=== PATIENT | female | born 1975 | race Caucasian/White ===

== ENCOUNTER 2021-10-30 08:29 | Day surgery (SDC) | payer OTHER, SELFPAY ==
[2021-10-30] MEDS: Lactated Ringers 1,000 ML 15 ML IV (09:00)
[2021-10-30 09:16] VITALS: BP 106/69; PULSE 69; RESP 16; TEMP 36.6; O2SAT 100; BMI 20.9
[2021-10-30 09:33] LABS: Internal QC Validated? YES +Cl - CLEAR BKGD; Pregnancy, Urine Negative Negative
--- NOTE | 2021-10-30 10:05 | HP.PCM_ITS ---
History and Physical Date of Admission: 10/30/21 46 F who presents to the office today for evaluation of chest pain and esophageal dysphagia. SHe was referred by PCP for evaluation. During routine PCP evaluation it was noted her biochemical workup was abnormal. she had pain in her chest and back that spontaneously resolved. Presented to [facility] ED for possible clotting due to elevated DDimer. CTA performed and PCP note reports this as showing esophageal thickening suspicious for esophagitis. She began having difficulty walking upright due to pain in her chest. HIDA scan, CT scans, ultrasounds performed. Pain in her chest with discomfort in her upper esophagus, this doesn?t feel like heartburn. Reports that when eating food she has problems with is passing through her esophagus slowly with feelings of food getting stuck. She had a glass of wine recently which caused her to have chest pain and sores in her mout h. Has changed her diet to reduce spicy food, she has reduced her alcohol consumption to rarely. Sees vascular specialist due to varicose veins, she will be seeing him for further workup regarding the DDimer. Hematology has not been established/referred to. Does not know her family history as she was not raised by her parents. ROS Const Constitutional: No anorexia, fatigue, fever(s), weight change or sleep problems Eyes Eyes: No change in vision ENT ENT: No abnormal hearing, difficulty swallowing, mouth lesions, tongue swelling or throat swelling Resp Respiratory: No cough or shortness of breath Cardio Cardiology: No chest pain at rest, chest pain with exertion, shortness of breath or dyspnea on exertion Gastro GI: No difficulty swallowing Genitourinary-Female: No difficulty urinating or burning urination Musc Musculoskeletal: No joint pain, joint swelling, muscle weakness or decreased muscle mass Skin Skin: No hair loss in leg, yellowing of the eye, itchy eyes, rash, skin ulcer or skin swelling Neuro Neurology: No abnormal hearing, abnormal movements, confusion, unsteady gait/balance or memory loss Psych Psychiatric: No anxiety, No confusion and No memory loss Endo Endocrine: No fatigue or weight change Aller/Imm Allergy/Immunologic: No itchy eyes, throat swelling or tongue swelling Shahid/Lymp Hematologic/Lymphatic: No easy bleeding, easy bruising or enlarged lymph nodes Exam Const General: cooperative and comfortable Nutritional Appearance: average body habitus and well nourished HENMT Head: normal to inspection Ears: hearing grossly normal bilaterally Nose: external nose normal Face and sinus: normal facial exam Mouth: oral mucosae normal Throat: posterior oropharynx normal Eyes General: appearance normal, both eyes and all related structures Neck Neck: normal visual inspection Chest Chest palpation & inspection: normal inspection of the chest and normal palpation of entire chest wall Resp Effort & Inspection: normal respiratory effort Auscultation: Bilateral: Clear to Auscultation Cardio Palpation: normal PMI Rate: regular rate Rhythm: regular rhythm GI Inspection: normal to inspection Auscultation: normal bowel sounds Percussion: normal to percussion Palpation: no hepatosplenomegaly Skin General: no rashes or lesions noted Neuro General: patient alert Extrem General: normal to inspection Psych Affect: normal affect Assessment and Plan Assessment and Plan (1) Chest pain: Status: Acute Orders: Orders: Celiac Disease Profile 10/24/21 H. PYLORI STOOL AG 10/24/21 Immunoglobulin A 10/24/21 Immunoglobulin E 10/24/21 Immunoglobulin G 10/24/21 Immunoglobulin M 10/24/21 Allergen, Rast Food Profile 10/24/21 Allergen, Food Profile 10/24/21 Miscellaneous Lab Procedure 10/24/21 Plan - Dr. Ferreira Friend, DO: She has evidence of thickening in her esophagus. The differential diagnosis for that would be erosive esophagitis, eosinophilic esophagitis. Less likely infectious esophagitis (esophagitis. She should undergo an upper endoscopy evaluation upper GI tract. She should also undergo biochemical testing. She has had several family. We will check her H. pylori in her stool and also perform work-up for celiac disease due to weight loss. She will also undergo further evaluation along with testing for celiac disease. Plan Details Other Medications: New: omeprazole Take one capsule daily 40 mg PO DAILY 30 caps 0RF I have re-examined the patient. There are no clinical changes since date of exam.
--- NOTE | 2021-10-30 10:30 | EGD_PTH ---
PATIENT: GUILLERMO SERRATO LOC: EN U#:[id number] AGE/SX: 46/F ROOM: RE10/30/[address]: Dr. Jhon Alvarez DO : 1975 BED: DIS: 10/30/2021 SPEC #: [id number] RECD: 10/30/21 14:30 STATUS: AYLA CALVIN #: [id number] MELIZA: 10/30/21 10:[address]: Jhon Alvarez DEPT: SURGICAL PATHOLOGY RECD BY: Kortney Sheth ENTERED: 10/31/21 09:35 SP TYPE: EGD BIOPSY MOY DR: Dr. Mohan Elaine MD Tissues: A - Gastric mucous membrane B - Gastric mucous membrane C - Gastric mucous membrane D - Esophagus, NOS Procedures: Surgery Specimen Level IV HEADER OPERATION[place] [place] DIAGNOSIS: Chest pain TISSUE SUBMITTED: A ? Gastric body biopsy, B ? Gastric antrum biopsy, C ? Gastric cardia biopsy, D ? Random esophagus biopsy MICROSCOPIC DIAGNOSIS A. Gastric body, biopsy: Chronic gastritis with focal acute gastritis. B. Gastric antrum, biopsy: Chronic gastritis. C. Gastric cardia, biopsy: Chronic gastritis. D. Esophagus, random biopsy: No pathologic change. AM:patrick 11/03/2021 MICROSCOPIC DESCRIPTION Slides are reviewed. GROSS DESCRIPTION A - Received in fixative is one container labeled with the patient's name and designated gastric body biopsy. The specimen consists of multiple irregular fragments of light cortez soft tissue that in aggregate measure 1.2 x 0.5 x 0.1 cm. The specimen is totally submitted in one cassette. B - Received in fixative is one container labeled with the patient's name and designated gastric antrum biopsy. The specimen consists of one irregular fragment of light cortez soft tissue that measures 0.3 x 0.3 x 0.1 cm. The specimen is totally submitted in one cassette. C - Received in fixative is one container labeled with the patient's name and designated gastric cardia biopsy. The specimen consists of two irregular fragments of light cortez soft tissue that in aggregate measure 0.6 x 0.2 x 0.1 cm. The specimen is totally submitted in one cassette. D - Received in fixative is one container labeled with the patient's name and designated random esophagus biopsy. The specimen consists of multiple irregular fragments of light cortez soft tissue that in aggregate measure 1.4 x 0.3 x 0.1 cm. The specimen is totally submitted in one cassette. / SJ:patrick 10/31/2021 TC:3 CPT: 28358 x4
[2021-10-30 11:33] VITALS: BP 106/69; BP 96/61; PULSE 74; RESP 16; TEMP 36.8; O2SAT 97
--- NOTE | 2021-10-30 11:34 | OP.EGD_ITS ---
Patient Name: Paty Moscoso Procedure Date: 10/30/2021 11:08 AM Date of : 1975 Age: 46 Procedure: Upper GI endoscopy Indications: Dysphagia Providers: Jhon Alvarez DO Medicines: See the Anesthesia note for documentation of the administered medications Patient Profile: This is a 46 year old female. Refer to note in patient chart for documentation of history and physical. Patient has symptoms of acute chest pain and chronic dysphagia. Complications: No immediate complications. Procedure: Pre-Anesthesia Assessment: - Prior to the procedure, a History and Physical was performed, and patient medications and allergies were reviewed. The patient is competent. The risks and benefits of the procedure and the sedation options and risks were discussed with the patient. All questions were answered and informed consent was obtained. Patient identification and proposed procedure were verified by the physician in the pre-procedure area. Mental Status Examination: alert and oriented. Airway Examination: normal oropharyngeal airway and neck mobility. Respiratory Examination: clear to auscultation. CV Examination: normal. Prophylactic Antibiotics: The patient does not require prophylactic antibiotics. Prior Anticoagulants: The patient has taken no previous anticoagulant or antiplatelet agents. ASA Grade Assessment: II - A patient with mild systemic disease. After reviewing the risks and benefits, the patient was deemed in satisfactory condition to undergo the procedure. The anesthesia plan was to use moderate sedation / analgesia (conscious sedation). Immediately prior to administration of medications, the patient was re-assessed for adequacy to receive sedatives. The heart rate, respiratory rate, oxygen saturations, blood pressure, adequacy of pulmonary ventilation, and response to care were monitored throughout the procedure. The physical status of the patient was re-assessed after the procedure. After obtaining informed consent, the endoscope was passed under direct vision. Throughout the procedure, the patient's blood pressure, pulse, and oxygen saturations were monitored continuously. The Endoscope was introduced through the mouth, and advanced to the second part of duodenum. The upper GI endoscopy was accomplished without difficulty. The patient tolerated the procedure well. Moderate Sedation: Moderate (conscious) sedation was administered by the endoscopy nurse and supervised by the endoscopist. The patient's oxygen saturation, heart rate, blood pressure and response to care were monitored. Total physician intraservice time was 15 minutes. Scope In: 11:19:41 AM Scope Out: 11:28:30 AM Total Procedure Duration Time 0 hours 8 minutes 49 seconds Findings: Mucosal changes including feline appearance, longitudinal furrows and small-caliber esophagus were found in the entire esophagus. Esophageal findings were graded using the Eosinophilic Esophagitis Endoscopic Reference Score (EoE-EREFS) as: Edema Grade 1 Present (decreased clarity or absence of vascular markings), Rings Grade 1 Mild (subtle circumferential ridges seen on esophageal distension), Exudates Grade 0 None (no white lesions seen), Furrows Grade 1 Present (vertical lines with or without visible depth) and Stricture none (no stricture found). Biopsies were taken with a cold forceps for histology. Verification of patient identification for the specimen was done. Estimated blood loss was minimal. Diffuse granular mucosa was found in the entire examined stomach. Biopsies were taken with a cold forceps for histology. Verification of patient identification for the specimen was done. Estimated blood loss was minimal. There was a gastric ulcer seen in the gastric body and biopsies were taken. The second portion of the duodenum was normal. Impression: - Esophageal mucosal changes consistent with eosinophilic esophagitis. Biopsied. - Granular gastric mucosa. Biopsied. - Normal second portion of the duodenum. Recommendation: - Discharge patient to home. - Resume previous diet. - Continue present medications. - Await pathology results. - Repeat upper endoscopy in 1 year for surveillance based on pathology results. - Return to GI office. Procedure Code(s): --- Professional --- 82318, Esophagogastroduodenoscopy, flexible, transoral; with biopsy, single or multiple 10644, 59, Moderate sedation services provided by the same physician or other qualified health care management coordinator performing the diagnostic or therapeutic service that the sedation supports, requiring the presence of an independent trained observer to assist in the monitoring of the patient's level of consciousness and physiological status; initial 15 minutes of intraservice time, patient age 5 years or older CPT copyright 2017 [employer]. All rights reserved. The codes documented in this report are preliminary and upon materials scheduler review may be revised to meet current compliance requirements. Jhon Alvarez DO 10/30/2021 11:33:45 AM This report has been signed electronically. Number of Addenda: 1 Note Initiated On: 10/30/2021 11:08 AM Addendum Number: 1 Addendum Date: 06/01/2022 6:43:37 AM MAC was used for sedation during this procedure. Jhon Alvarez DO 06/01/2022 6:43:41 AM This report has been signed electronically.
--- NOTE | 2021-10-30 11:34 | OP.CCLET_ITS ---
06/01/2022 Mohan Elaine Re : Upper GI endoscopy procedure for Paty De Diosr Chele This procedure was performed on October. My impressions and recommendations are as follows: Impressions : - Esophageal mucosal changes consistent with eosinophilic esophagitis. Biopsied. - Granular gastric mucosa. Biopsied. - Normal second portion of the duodenum. Recommendations : - Discharge patient to home. - Resume previous diet. - Continue present medications. - Await pathology results. - Repeat upper endoscopy in 1 year for surveillance based on pathology results. - Return to GI office. My findings are described in the full procedure note, which is enclosed. If I can be of further assistance, please feel free to contact me at . Sincerely, Jhon Alvarez, 10/30/2021 11:33:45 AM This report has been signed electronically.
[2021-10-30 11:38] VITALS: BP 102/65; BP 106/69; PULSE 76; RESP 16; O2SAT 100
[2021-10-30 11:43] VITALS: BP 106/69; BP 96/63; PULSE 73; RESP 16; O2SAT 100
[2021-10-30 11:48] VITALS: BP 100/68; BP 106/69; PULSE 73; RESP 16; TEMP 36.8; O2SAT 100
[2021-10-30 12:06] VITALS: BP 106/69
[2021-11-04 11:08] LABS: Endomysial Antibody IgA Negative (Negative); Immunoglobulin A 89 mg/dL (87-352); Immunoglobulin G 834 mg/dL (586-1602); Immunoglobulin M 166 mg/dL (26-217)
[2021-11-04 14:09] LABS: Anti-Centromere B Ab <0.2 AI (0.0-0.9); Anti-Chromatin <0.2 AI (0.0-0.9); Anti-Jo <0.2 AI (0.0-0.9); Anti-Scleroderma-70 AB <0.2 AI (0.0-0.9); Beef <0.10 kU/L (Class 0); Clam <0.10 kU/L (Class 0); Codfish <0.10 kU/L (Class 0); Corn <0.10 kU/L (Class 0); Egg, White <0.10 kU/L (Class 0); Egg, Whole <0.10 kU/L (Class 0); Milk (Cow) <0.10 kU/L (Class 0); Peanut <0.10 kU/L (Class 0); Pork <0.10 kU/L (Class 0); RNP Ab <0.2 AI (0.0-0.9); SCALLOP <0.10 kU/L (Class 0); SESAME SEED <0.10 kU/L (Class 0); SJOGREN'S Anti-SS-A test < 0.2 AI (0.0-0.9); SJOGREN'S Anti-SS-B test < 0.2 AI (0.0-0.9); Shrimp <0.10 kU/L (Class 0); Smith Ab <0.2 AI (0.0-0.9); Soybean <0.10 kU/L (Class 0); Walnut, (Food) <0.10 kU/L (Class 0); Wheat <0.10 kU/L (Class 0)
[2021-11-04 14:22] LABS: Immunoglobulin E 38 IU/mL (6-495); t-Transglutaminase IgA <2 U/mL (0-3)
[2021-11-04 17:26] LABS: Anti-dsDNA Ab 2 IU/mL (0-9); Chocolate <0.10 kU/L (Class 0)
== END 2021-10-30 23:59 | disposition home or self-care (01) ==
LOC: EN 08:36 → AC 08:46
PROVIDERS: Anesthesiology; PCP Family Medicine; Referring Provider Family Medicine; Visit Provider Internal Medicine Gastroenterology
PROC: 0DJ08ZZ Inspection of Upper Intestinal Tract, Via Natural or Artificial Opening Endoscopic (ICD-10-PCS; CPT 43235; principal; 2021-10-30 10:25)
DX: K25.9 Gastric ulcer, unspecified as acute or chronic, without hemorrhage or perforation (principal); K29.00 Acute gastritis without bleeding; K29.50 Unspecified chronic gastritis without bleeding; R13.10 Dysphagia, unspecified
CPT/HCPCS: 43239; 36415; 81025; 82784; 82785; 83516; 86003; 86005; 86225; 86235; 86255; 87426; 88305; J7120; J2405

== ENCOUNTER 2021-11-21 14:03 | Outpatient (CLI) | payer OTHER, SELFPAY ==
[2021-11-25 13:23] LABS: H. PYLORI STOOL AG Positive (Negative)
== END 2021-11-21 23:59 | disposition home or self-care (01) ==
LOC: LAB 14:04
PROVIDERS: PCP Family Medicine; Referring Provider Internal Medicine Gastroenterology; Visit Provider Internal Medicine Gastroenterology
DX: R07.9 Chest pain, unspecified (principal)

== ENCOUNTER → 2022-01-09 | Outpatient (CLI) | payer OTHER, SELFPAY ==
[2022-01-13 10:41] LABS: H. PYLORI STOOL AG Negative (Negative)
== END | disposition home or self-care (01) ==
LOC: LAB 16:23
PROVIDERS: PCP Family Medicine; Referring Provider Nurse Practitioner Adult Health; Visit Provider Nurse Practitioner Adult Health
DX: A04.8 Other specified bacterial intestinal infections (principal)

== ENCOUNTER 2022-05-20 06:25 | Day surgery (SDC) | payer OTHER, SELFPAY ==
--- NOTE | 2022-05-20 | EGD_PTH ---
PATIENT: GUILLERMO SERRATO LOC: EN U#:[id number] AGE/SX: 46/F ROOM: RE05/20/[address]: Dr. Jhon Alvarez DO : 1975 BED: DIS: 05/20/2022 SPEC #: [id number] RECD: 05/20/22 12:46 STATUS: AYLA CALVIN #: [id number] MELIZA: 05/20/22 00:[address]: Jhon Alvarez DEPT: SURGICAL PATHOLOGY RECD BY: Meño Elaine ENTERED: 05/20/22 12:47 SP TYPE: EGD BIOPSY OT DR: Dr. Mohan Elaine MD Tissues: A - Duodenum, NOS B - Gastric mucous membrane C - Gastric mucous membrane D - Esophageal mucous membrane E - Esophageal mucous membrane Procedures: Special Stain Group II Surgery Specimen Level IV Alcian Blue/PAS (control) HEADER OPERATION: Colonoscopy, [place] [place] PRE-OP DIAGNOSIS: Gastric ulcer, gastritis TISSUE SUBMITTED: A ? Duodenum biopsy, B ? Gastric antrum biopsy for H. pylori and pathology, C ? Gastric body biopsy, D ? Distal esophagus biopsy, E ? Random esophagus biopsy MICROSCOPIC DIAGNOSIS A. Duodenum, biopsy: Fragments of duodenal mucosa, no pathologic diagnosis. B. Gastric antrum, biopsy: Moderate gastritis. See microscopic description and comment. C. Gastric body, biopsy: Mild gastritis. See microscopic description. D. Distal esophagus, biopsy: Fragments of gastroesophageal mucosa with focal intestinal metaplasia (goblet cell metaplasia) consistent with Harris?s esophagus. Chronic inflammation. Negative for dysplasia. See comment. E. Esophagus, random biopsy: Fragments of squamous epithelium, no pathologic diagnosis. SJ:rg 05/21/2022 COMMENT B. The results of immunohistochemistry for Helicobacter pylori will be reported separately ([id number]). D. Immunohistochemistry ([id number]) for P53 and Ki-67 will be performed and results will be reported separately. Alcian blue/PAS stain with matched control is used in the evaluation of the specimen. MICROSCOPIC DESCRIPTION Slides are reviewed. B. The specimen shows fragments of gastric mucosa with chronic inflammatory cell infiltrates in the lamina propria consisting of lymphocytes and plasma cells, consistent with moderate chronic gastritis. C. The specimen shows fragments of gastric mucosa with chronic inflammatory cell infiltrates in the lamina propria consisting of lymphocytes and plasma cells, consistent with mild chronic gastritis. GROSS DESCRIPTION A - Received in fixative is one container labeled with the patient's name and designated biopsy duodenum. The specimen consists of three irregular fragments of light cortez soft tissue that in aggregate measure 0.8 x 0.3 x 0.1 cm. The specimen is totally submitted in one cassette. B - Received in fixative is one container labeled with the patient's name and designated gastric antrum. The specimen consists of multiple irregular fragments of light cortez soft tissue that in aggregate measure 0.6 x 0.3 x 0.1 cm. The specimen is totally submitted in one cassette. C - Received in fixative is one container labeled with the patient's name and designated biopsy gastric body. The specimen consists of one irregular fragment of light cortez soft tissue that measures 0.4 x 0.4 x 0.1 cm. The specimen is totally submitted in one cassette. D - Received in fixative is one container labeled with the patient's name and designated distal esophagus biopsy. The specimen consists of multiple irregular fragments of light cortez soft tissue that in aggregate measure 0.7 x 0.5 x 0.1 cm. The specimen is totally submitted in one cassette. E - Received in fixative is one container labeled with the patient's name and designated random esophagus. The specimen consists of multiple irregular fragments of light cortez soft tissue that in aggregate measure 1.2 x 0.4 x 0.1 cm. The specimen is totally submitted in one cassette. / SJ:patrick 05/20/2022 TC:3 [facility]: [id number] x5, 11938 ADDENDUM ADDENDUM ADDENDUM ADDENDUM ADDENDUM ADDENDUM ADDENDUM ADDENDUM ADDENDUM ADDENDUM ADDENDUM ADDENDUM ADDENDUM ADDENDUM ADDENDUM ADDENDUM ADDENDUM ADDENDUM ADDENDUM ADDENDUM ADDENDUM ADDENDUM ADDENDUM 09/10/2022 09:40 ADDENDUM 09/10/2022 09:40 ADDENDUM 09/10/2022 09:40 ADDENDUM 09/10/2022 09:40 ADDENDUM 09/10/2022 09:40 This addendum is added to incorporate an outside pathology consultation report. The case was examined at [facility] (#[id number]) and the following diagnosis was rendered. A. Duodenum, biopsy: Small intestinal mucosa with no diagnostic alteration. No evidence of celiac disease. B. Gastric antrum, biopsy: Antral mucosa with chronic inactive gastritis. Negative for Helicobacter pylori. C. Gastric body, biopsy: Oxyntic mucosa with chronic inactive gastritis. Negative for Helicobacter pylori. D. Distal esophagus, biopsy: Intestinal metaplasia, arising in squamo-gastric junctional mucosa, negative for dysplasia. E. Random esophagus, biopsy: Squamous mucosa with no diagnostic alteration. No prominence of intraepithelial eosinophils. Please see complete above mentioned consultation report in EMR
--- NOTE | 2022-05-20 06:36 | PCM.HP.BLA ---
History and Physical Date of Admission: 05/20/22 GUILLERMO SERRATO, is a 46 F who presents to the office today for f/u positive H pylori.? We treated her H. pylori, the follow-up stool H. pylori test was negative. She does feel better however she still has to avoid spicy foods, onions, and sometimes wine.? Still occasionally gets epigastric pain and sore throat, but less severe and less often. She called for refill of sucralfate recently, may be some improvement with it. Last visit was 11/14/21, at that visit we discussed results of EGD and biopsy; plan was to treat gastritis with 1 month of sucralfate and increase omeprazole 40 mg twice daily for 2 weeks, then will decrease to once daily for probably 8 weeks.? There was a gastric ulcer seen in the gastric body.? Stool test after that visit revealed H. pylori. Lab tests were negative for celiac disease, food allergies.? MAIN comprehensive was negative. In August 2021 she had pain in her chest and back that spontaneously resolved.? CTA was done and showed esophageal thickening suspicious for esophagitis.? She then started having pain in her chest, it was not obviously heartburn or acid reflux to her.? She also had chronic sore throat.? She did have a flare of chest pain with wine and also had sores in her mouth.? Symptoms improved once she started omeprazole but they did not resolve. 10/30/2021 EGD Impression: ? - Esophageal mucosal changes consistent with ? eosinophilic esophagitis. Biopsied. ? - Granular gastric mucosa. Biopsied. ? - Normal second portion of the duodenum. There was a gastric ulcer seen in the gastric body and ?? ? biopsies were taken. Pathology Report: A.? Gastric body, biopsy:Chronic gastritis with focal acute gastritis. B.? Gastric antrum, biopsy:Chronic gastritis. C.? Gastric cardia, biopsy:Chronic gastritis. D.? Esophagus, random biopsy:No pathologic change ROS Const Constitutional: No fatigue ENT ENT: No difficulty swallowing Gastro GI: No abdominal pain, belching, bloating, change in bowel habits, change in stool character, coffee ground emesis, constipation, cramping, diarrhea, heartburn, difficulty swallowing, feeling full early, excessive flatus, incontinent of stools, Vomiting blood/hematemesis, Blood in stool, loose stools, Black,tarry stools, nausea/dyspepsia, pain with swallowing, vomiting or other Musc Musculoskeletal: No joint pain Skin Skin: Positive for itchy eyes and rash; No yellowing of the eye Psych Psychiatric: No anxiety and No depression Endo Endocrine: No fatigue Aller/Imm Allergy/Immunologic: Positive for itchy eyes Shahid/Lymp Hematologic/Lymphatic: No easy bleeding or easy bruising Exam Const General: cooperative, healthy appearing, comfortable, well developed and well groomed GI Inspection: normal to inspection Palpation: soft and nontender Quality Reporting Tobacco Screening ([facility] 138) Smoking Status: Never smoker Assessment and Plan Assessment and Plan (1) Gastric ulcer: ?Status:?Acute (2) Colonoscopy planned: ?Status:?Acute (3) Gastritis: ?Status:?Acute ?Plan - Audelia Campos NP, LAUNDRY PRESSER-C: 46-year-old female with recent gastritis, gastric ulcer.? Her epigastric pain has improved however she still has to avoid spicy foods.? She will continue on pantoprazole 40 mg every morning.? She plans to complete a month of sucralfate again.? Will schedule repeat EGD to eval for resolution of gastric ulcer, as well as screening colonoscopy, follow-up 2 weeks after endoscopies to discuss biopsy results. I have re-examined the patient. There are no clinical changes since date of exam.
[2022-05-20] MEDS: Lactated Ringers 1,000 ML 15 ML IV (06:47)
[2022-05-20 06:48] VITALS: BP 101/65; PULSE 88; RESP 18; TEMP 36.3; O2SAT 100; BMI 20.8
[2022-05-20 06:49] LABS: Internal QC Validated? YES +Cl - CLEAR BKGD; Pregnancy, Urine Negative Negative
--- NOTE | 2022-05-20 07:30 | IMM_PTH ---
PATIENT: GUILLERMO SERRATO LOC: EN U#:[id number] AGE/SX: 46/F ROOM: RE05/20/[address]: Dr. Jhon Alvarez DO : 1975 BED: DIS: 05/20/2022 SPEC #: [id number] RECD: 05/20/22 13:23 STATUS: AYLA REJaren #: [id number] MELIZA: 05/20/22 07:[address]: Jhon Alvarez DEPT: IMMUNOHISTOCHEMISTRY RECD BY: Sondra Quinones ENTERED: 05/20/22 13:24 SP TYPE: IMMUNO OTHR DR: Dr. Mohan Elaine MD Tissues: B - Stomach, NOS D - Esophageal mucous membrane Procedures: H Pylori (initial) P53 (initial) KI-67 (add) PHYSICIAN & INSTITUTION [place] [id number] SPECIMEN INFORMATION: Tissue Source: B ? Gastric antrum, D ? Distal esophagus Clinical Info: Gastric ulcer, gastritis Specimen Number: [id number] B & D CPT code: 16681 x2, 62448 METHODOLOGY: Deparaffinized sections of prefer/formalin-fixed tissue or PAP/DQ stained slides are incubated with monoclonal/polyclonal antibodies/oligonucleotide probes. Localization is made via biotin free immunoperoxidase method. Appropriate controls are performed and reacted as expected. Results on target cell population are indicated in the following table: RESULTS: ANTIBODY / CLONE RESULT Block B H Pylori (polyclonal) negative Block D P53 (DO-7) negative Ki-67 (30-9) positive, very low These tests were developed and their performance characteristics determined by [facility]. They may not have been cleared or approved by the U.S. Food and Drug Administration. The FDA has determined that such clearance or approval is not necessary. The above immunohistochemical/dualISH markers are ordered and reviewed by the Pathologist. INTERPRETATION: B. Gastric antrum, biopsy: Negative for Helicobacter pylori organisms. D. Distal esophagus, biopsy: Negative for dysplasia. SJ:patrick 05/22/2022
[2022-05-20 08:05] VITALS: BP 101/65; BP 95/84; PULSE 85; RESP 16; TEMP 36.6; O2SAT 100
--- NOTE | 2022-05-20 08:09 | OP.CCLET_ITS ---
05/20/2022 Mohan Elaine Re : Upper GI endoscopy procedure for Paty De Diosr Chele This procedure was performed on Friday, May 20, 2022. My impressions and recommendations are as follows: Impressions : - Glycogenic acanthosis of the esophagus. Biopsied. - Z-line irregular, 38 cm from the incisors. Biopsied. - Medium-sized hiatal hernia. - Erythematous mucosa in the gastric body, greater curvature and antrum. Biopsied. - Erythematous duodenopathy. Biopsied. Recommendations : - Discharge patient to home. - Resume previous diet. - Continue present medications. - Await pathology results. My findings are described in the full procedure note, which is enclosed. If I can be of further assistance, please feel free to contact me at . Sincerely, Jhon Alvarez, 05/20/2022 8:08:30 AM This report has been signed electronically.
--- NOTE | 2022-05-20 08:09 | OP.EGD_ITS ---
Patient Name: Paty Moscoso Procedure Date: 05/20/2022 7:26 AM Date of : 1975 Age: 46 Procedure: Upper GI endoscopy Indications: Epigastric abdominal pain, Functional Dyspepsia, Failure to respond to medical treatment, Helicobacter pylori Providers: Jhon Alvarez DO Medicines: Monitored Anesthesia Care Patient Profile: This is a 46 year old female. Refer to note in patient chart for documentation of history and physical. Patient has symptoms of chronic abdominal cramping, chronic abdominal distention, chronic epigastric abdominal pain and chronic dyspepsia. Complications: No immediate complications. Procedure: Pre-Anesthesia Assessment: - Prior to the procedure, a History and Physical was performed, and patient medications and allergies were reviewed. The patient is competent. The risks and benefits of the procedure and the sedation options and risks were discussed with the patient. All questions were answered and informed consent was obtained. Patient identification and proposed procedure were verified by the physician in the pre-procedure area. Mental Status Examination: alert and oriented. Airway Examination: normal oropharyngeal airway and neck mobility. Respiratory Examination: clear to auscultation. CV Examination: normal. Prophylactic Antibiotics: The patient does not require prophylactic antibiotics. Prior Anticoagulants: The patient has taken no previous anticoagulant or antiplatelet agents. ASA Grade Assessment: I - A normal, healthy patient. After reviewing the risks and benefits, the patient was deemed in satisfactory condition to undergo the procedure. The anesthesia plan was to use monitored anesthesia care (MAC). Immediately prior to administration of medications, the patient was re-assessed for adequacy to receive sedatives. The heart rate, respiratory rate, oxygen saturations, blood pressure, adequacy of pulmonary ventilation, and response to care were monitored throughout the procedure. The physical status of the patient was re-assessed after the procedure. After obtaining informed consent, the endoscope was passed under direct vision. Throughout the procedure, the patient's blood pressure, pulse, and oxygen saturations were monitored continuously. The colonoscope was introduced through the mouth, and advanced to the second part of duodenum. The upper GI endoscopy was accomplished without difficulty. The patient tolerated the procedure well. Scope In: 7:37:57 AM Scope Out: 7:44:18 AM Total Procedure Duration Time 0 hours 6 minutes 21 seconds Findings: Patchy glycogenic acanthosis was found in the proximal esophagus. Biopsies were taken with a cold forceps for histology. Verification of patient identification for the specimen was done. Estimated blood loss was minimal. The Z-line was irregular and was found 38 cm from the incisors. Biopsies were taken with a cold forceps for histology. Verification of patient identification for the specimen was done. Estimated blood loss was minimal. A medium-sized hiatal hernia was present. Diffuse mildly erythematous mucosa without bleeding was found in the gastric body, on the greater curvature of the stomach and in the gastric antrum. Biopsies were taken with a cold forceps for Helicobacter pylori testing. Biopsies were taken with a cold forceps for histology. Verification of patient identification for the specimen was done. Estimated blood loss was minimal. Patchy mildly erythematous mucosa without active bleeding and with no stigmata of bleeding was found in the duodenal bulb. Biopsies were taken with a cold forceps for histology. Verification of patient identification for the specimen was done. Estimated blood loss was minimal. Transition from the duodenal bulb into the first portion of the duodenum was very narrow and redundant. Impression: - Glycogenic acanthosis of the esophagus. Biopsied. - Z-line irregular, 38 cm from the incisors. Biopsied. - Medium-sized hiatal hernia. - Erythematous mucosa in the gastric body, greater curvature and antrum. Biopsied. - Erythematous duodenopathy. Biopsied. Recommendation: - Discharge patient to home. - Resume previous diet. - Continue present medications. - Await pathology results. Procedure Code(s): --- Professional --- 54871, Esophagogastroduodenoscopy, flexible, transoral; with biopsy, single or multiple CPT copyright 2017 [employer]. All rights reserved. The codes documented in this report are preliminary and upon government affairs specialist review may be revised to meet current compliance requirements. Jhon Alvarez DO 05/20/2022 8:08:30 AM This report has been signed electronically. Number of Addenda: 0 Note Initiated On: 05/20/2022 7:26 AM
[2022-05-20 08:10] VITALS: BP 101/65; BP 95/67; PULSE 79; RESP 16; O2SAT 100
--- NOTE | 2022-05-20 08:14 | OP.CCLET_ITS ---
05/20/2022 Mohan Elaine Re : Colonoscopy procedure for Paty Moscoso Dear Chele This procedure was performed on Friday, May 20, 2022. My impressions and recommendations are as follows: Impressions : - Preparation of the colon was fair. - Redundant colon. - Stool in the descending colon. - No specimens collected. Recommendations : - Discharge patient to home. - Resume previous diet. - Continue present medications. - Repeat colonoscopy in 5 years because the bowel preparation was suboptimal. - Return to GI office. My findings are described in the full procedure note, which is enclosed. If I can be of further assistance, please feel free to contact me at . Sincerely, Jhon Alvarez, 05/20/2022 8:13:27 AM This report has been signed electronically.
--- NOTE | 2022-05-20 08:14 | OP.COLON_ITS ---
Patient Name: Paty Moscoso Procedure Date: 05/20/2022 7:44 AM Date of : 1975 Age: 46 Procedure: Colonoscopy Indications: Screening for colorectal malignant neoplasm Providers: Jhon Alvarez DO Medicines: Monitored Anesthesia Care Patient Profile: This is a 46 year old female. Refer to note in patient chart for documentation of history and physical. Patient has symptoms of chronic abdominal cramping, chronic abdominal distention, chronic epigastric abdominal pain and chronic dyspepsia. Last Colonoscopy: none. The patient's first colonoscopy is today. Complications: No immediate complications. Procedure: Pre-Anesthesia Assessment: - Prior to the procedure, a History and Physical was performed, and patient medications and allergies were reviewed. The patient is competent. The risks and benefits of the procedure and the sedation options and risks were discussed with the patient. All questions were answered and informed consent was obtained. Patient identification and proposed procedure were verified by the physician in the pre-procedure area. Mental Status Examination: alert and oriented. Airway Examination: normal oropharyngeal airway and neck mobility. Respiratory Examination: clear to auscultation. CV Examination: normal. Prophylactic Antibiotics: The patient does not require prophylactic antibiotics. Prior Anticoagulants: The patient has taken no previous anticoagulant or antiplatelet agents. ASA Grade Assessment: I - A normal, healthy patient. After reviewing the risks and benefits, the patient was deemed in satisfactory condition to undergo the procedure. The anesthesia plan was to use monitored anesthesia care (MAC). Immediately prior to administration of medications, the patient was re-assessed for adequacy to receive sedatives. The heart rate, respiratory rate, oxygen saturations, blood pressure, adequacy of pulmonary ventilation, and response to care were monitored throughout the procedure. The physical status of the patient was re-assessed after the procedure. After I obtained informed consent, the scope was passed under direct vision. Throughout the procedure, the patient's blood pressure, pulse, and oxygen saturations were monitored continuously. The colonoscope was introduced through the anus and advanced to the cecum, identified by appendiceal orifice and ileocecal valve. The colonoscopy was performed without difficulty. The patient tolerated the procedure well. The quality of the bowel preparation was fair. Scope In: 7:46:27 AM Scope Withdrawal Time 0 hours 8 minutes 14 seconds Scope Out: 7:58:04 AM Total Procedure Duration Time 0 hours 11 minutes 37 seconds Findings: The perianal and digital rectal examinations were normal. The sigmoid colon was moderately redundant. A moderate amount of stool was found in the descending colon, interfering with visualization. Impression: - Preparation of the colon was fair. - Redundant colon. - Stool in the descending colon. - No specimens collected. Recommendation: - Discharge patient to home. - Resume previous diet. - Continue present medications. - Repeat colonoscopy in 5 years because the bowel preparation was suboptimal. - Return to GI office. Procedure Code(s): --- Professional --- G0121, Colorectal cancer screening; colonoscopy on individual not meeting criteria for high risk CPT copyright 2017 [employer]. All rights reserved. The codes documented in this report are preliminary and upon cpc coder review may be revised to meet current compliance requirements. Jhon Alvarez DO 05/20/2022 8:13:27 AM This report has been signed electronically. Number of Addenda: 0 Note Initiated On: 05/20/2022 7:44 AM
[2022-05-20 08:15] VITALS: BP 101/65; BP 102/67; PULSE 72; RESP 16; O2SAT 100
[2022-05-20 08:20] VITALS: BP 101/65; BP 107/69; PULSE 73; RESP 16; TEMP 36.4; O2SAT 100
[2022-05-20 08:30] VITALS: BP 101/65
== END 2022-05-20 08:49 | disposition home or self-care (01) ==
LOC: EN 06:27 → AC 06:28
PROVIDERS: Anesthesiology; PCP Family Medicine; Referring Provider Family Medicine; Visit Provider Internal Medicine Gastroenterology
PROC: 0DJD8ZZ Inspection of Lower Intestinal Tract, Via Natural or Artificial Opening Endoscopic (ICD-10-PCS; CPT 45378; principal; 2022-05-20 07:25)
DX: Z12.11 Encounter for screening for malignant neoplasm of colon (principal); K25.3 Acute gastric ulcer without hemorrhage or perforation; K44.9 Diaphragmatic hernia without obstruction or gangrene; Q43.8 Other specified congenital malformations of intestine; K29.70 Gastritis, unspecified, without bleeding; Z79.899 Other long term (current) drug therapy
CPT/HCPCS: 45378; 43239; 81025; 88305; 88313; 88341; 88342; J7120; J2405